=== PATIENT | female | born 1995 | race Caucasian/White ===

== ENCOUNTER 2016-08-24 23:39 | Outpatient (CLI) | payer BC ==
[~2016-08-24] VITALS: Ht 170.2 cm; Wt 78.6 kg
[2016-08-25] VITALS: BP 138/87; PULSE 98; TEMP 97.9
[2016-08-25 00:11] VITALS: BP 138/87; PULSE 98; TEMP 97.9
[2016-08-25] MEDS ORDERED: PRENATAL (00:17)
[2016-08-25] MEDS ORDERED: SYNTHROID0.137 MG (00:17)
[2016-08-25] MEDS ORDERED: CYTOMEL 2525 MCG/TAB PO (00:29)
[2016-08-25 01:00] VITALS: BP 122/80; PULSE 106
== END 2016-08-25 01:11 | disposition home or self-care (01) ==
LOC: LDRO 23:39
DX: O47.1 False labor at or after 37 completed weeks of gestation (principal); Z3A.37 37 weeks gestation of pregnancy

== ENCOUNTER 2016-09-09 03:11 | Inpatient (IN) | payer BC ==
[2016-09-09] VITALS (38 sets, daily range): BP systolic 97–148; BP diastolic 59–871; PULSE 68–129; TEMP 97.3–97.8
[~2016-09-09] VITALS: Ht 170.2 cm; Wt 79.1 kg
[~2016-09-09 03:11] MED LIST: CYTOMEL 2525 MCG/TAB PO; PRENATAL; SYNTHROID0.137 MG
[2016-09-09] MEDS ORDERED: ALBUTEROL0.83 MG/ML IH (03:47)
[2016-09-09 09:32] LABS: BASO # 0.1 (0.0-0.2); BASO % 0.4 % (0.0-2.0); EOS # 0.1 (0.0-0.7); EOS % 0.5 % (0-4.0); GRAN # 9.2 (1.4-6.5); GRAN % 71.1 % (42.2-75.2); LYMPH # 2.8 (1.2-3.4); LYMPH % 21.3 % (20.0-51.0); MEAN CELL VOLUME 77 fl (80.0-100.0); MEAN CORPUSCULAR HGB CONC 32 g/dl (33.0-37.0); MEAN PLATELET VOLUME 11.7 fl (7.4-10.4); MONO # 0.8 (0.1-0.6); MONO % 5.9 % (1.7-9.3); PLATELET COUNT 160 K/mm3 (130-400); RED BLOOD COUNT 4.67 M/mm3 (4.10-5.30); REDCELL DISTRIBUTION WIDTH-CV 14.8 % (11.5-14.5)
[2016-09-09 09:35] LABS: HEMATOCRIT 36.1 % (37.0-47.0); HEMOGLOBIN 11.4 g/dl (12.5-16.0); MEAN CORPUSCULAR HEMOGLOBIN 24 pg (27.0-31.0)
[2016-09-10 00:05] VITALS: BP 113/76; PULSE 103; TEMP 97.5
[2016-09-10 04:05] VITALS: BP 99/65; PULSE 80; TEMP 97.8
[2016-09-10 08:00] VITALS: BP 126/87; PULSE 93; TEMP 98
[2016-09-10 17:00] VITALS: BP 118/80; PULSE 88; TEMP 97.8
[2016-09-10 21:42] VITALS: BP 126/78; PULSE 90; TEMP 98.6
[2016-09-11 08:00] VITALS: BP 102/71; PULSE 79; TEMP 98.1
[2016-09-11] MEDS ORDERED: PHENERGAN W/CO120 M1 PO (09:07)
== END 2016-09-11 11:15 | disposition home or self-care (01) | DRG 775 ==
LOC: LDRO 03:11 → LDR 08:41 → OB 19:30 → LDR 19:30 → OB 19:30
PROVIDERS: Obstetrics & Gynecology
PROC: 10E0XZZ Delivery of Products of Conception, External Approach (ICD-10-PCS; principal; 2016-09-09)
PROC: 0KQM0ZZ Repair Perineum Muscle, Open Approach (ICD-10-PCS; 2016-09-09)
PROC: 0HQ9XZZ Repair Perineum Skin, External Approach (ICD-10-PCS; 2016-09-09)
DX: O99.284 Endocrine, nutritional and metabolic diseases complicating childbirth (principal); E03.9 Hypothyroidism, unspecified; O99.89 Other specified diseases and conditions complicating pregnancy, childbirth and the puerperium; M06.9 Rheumatoid arthritis, unspecified; O70.1 Second degree perineal laceration during delivery; O70.0 First degree perineal laceration during delivery; O69.81X0 Labor and delivery complicated by cord around neck, without compression, not applicable or unspecified; Z3A.39 39 weeks gestation of pregnancy; Z37.0 Single live birth
CPT/HCPCS: J2405; J2590; J7120

== ENCOUNTER 2018-03-23 06:20 | Inpatient (IN) | payer BC ==
[2018-03-23] VITALS (39 sets, daily range): BP systolic 97–132; BP diastolic 55–94; PULSE 67–111; TEMP 97.7–98.8
[~2018-03-23] VITALS: Ht 170.2 cm; Wt 84.1 kg
[~2018-03-23 06:20] MED LIST changes: +ALBUTEROL0.83 MG/ML IH; +PHENERGAN W/CO120 M1 PO; +PRILOTC; +SYNTHROID0.175 MG PO; +ZYRTEC5 MG PO
[2018-03-23] MEDS ORDERED: ZYRTEC 10MG10 MG PO (07:55)
[2018-03-23 08:40] LABS: BASO % 0.3 % (0.0-2.0); EOS # 0.1 (0.0-0.7); EOS % 0.8 % (0-4.0); GRAN # 6.4 (1.4-6.5); GRAN % 63.2 % (42.2-75.2); HEMOGLOBIN 10.3 g/dl (12.5-16.0); LYMPH % 29.2 % (20.0-51.0); MEAN CORPUSCULAR HEMOGLOBIN 24 pg (27.0-31.0); MEAN CORPUSCULAR HGB CONC 31 g/dl (33.0-37.0); MEAN PLATELET VOLUME 11.7 fl (7.4-10.4); MONO # 0.6 (0.1-0.6); MONO % 5.8 % (1.7-9.3); PLATELET COUNT 172 K/mm3 (130-400); RED BLOOD COUNT 4.38 M/mm3 (4.10-5.30); REDCELL DISTRIBUTION WIDTH-CV 14.5 % (11.5-14.5)
[2018-03-23 08:55] LABS: HEMATOCRIT 32.8 % (37.0-47.0)
[2018-03-23 08:56] LABS: MEAN CELL VOLUME 75 fl (80.0-100.0)
[2018-03-24 00:15] VITALS: BP 118/66; PULSE 84; TEMP 97.6
[2018-03-24 04:05] VITALS: BP 94/55; PULSE 72; TEMP 98.2
[2018-03-24 08:00] VITALS: BP 100/61; PULSE 80; TEMP 98.3
[2018-03-24] MEDS ORDERED: IBU600 MG PO (08:26)
[2018-03-24 12:30] VITALS: BP 104/63; PULSE 67; TEMP 98.1
[2018-03-24 16:00] VITALS: BP 112/79; PULSE 79; TEMP 97
== END 2018-03-24 16:50 | disposition home or self-care (01) | DRG 775 ==
LOC: LDR 06:20 → OB 17:00
PROVIDERS: Obstetrics & Gynecology
PROC: 10E0XZZ Delivery of Products of Conception, External Approach (ICD-10-PCS; principal; 2018-03-23)
PROC: 3E033VJ Introduction of Other Hormone into Peripheral Vein, Percutaneous Approach (ICD-10-PCS; 2018-03-23)
PROC: 10907ZC Drainage of Amniotic Fluid, Therapeutic from Products of Conception, Via Natural or Artificial Opening (ICD-10-PCS; 2018-03-23)
DX: O70.1 Second degree perineal laceration during delivery (principal); Z3A.39 39 weeks gestation of pregnancy; Z37.0 Single live birth; O99.284 Endocrine, nutritional and metabolic diseases complicating childbirth; E03.9 Hypothyroidism, unspecified; M06.9 Rheumatoid arthritis, unspecified
CPT/HCPCS: J2405; J2590; J2795; J7120

== ENCOUNTER 2021-08-19 07:12 | Inpatient (IN) | payer BC ==
[~2021-08-19] VITALS: Ht 170.2 cm; Wt 80.5 kg
[2021-08-19] VITALS (25 sets, daily range): BP systolic 97–135; BP diastolic 50–89; PULSE 60–96; TEMP 97.8–98.2
[~2021-08-19 07:12] MED LIST changes: +IBU600 MG PO; +ZYRTEC 10MG10 MG PO
--- NOTE | 2021-08-19 07:20 | NUR ---
PT AMBULATORY TO UNIT C/O VAGINAL BLEEDING WITH LOW LYING PLACENTA. BLEEDING STARTED AROUND 0400 "LEAKING OUT OF HER UNDERWEAR ONTO HER BED". UPON ARRIVAL PT HAS SMALL AMOUNT OF BLEEDING IN PAD WITH A MIX OF BROWN BLOOD AND NEW RED BLOOD, PEA SIZED CLOT IN TOILET. NO FREE FLOW NOTED. REPORTS CONTRACTIONS Q5 MINUTES FOR "WEEKS". REPORTS POSITIVE MOVEMENT. PLACED ON EFM/TOCO. CATEGORY 1 STRIP NOTED. VITAL SIGNS STABLE. SEE PHYS. NOTIFICATION.
--- NOTE | 2021-08-19 08:30 | NUR ---
AT BEDSIDE. SVE FINGERTIP AT THIS TIME PER . NO FURTHER BLEEDING NOTED. NO BLOOD ON GLOVE WITH SVE. CATEGORY 1 STRIP ON EFM. CONTRACTIONS Q2-3 MIN. DECISION MADE FOR PRIMARY CSECTION AT 12:00 TODAY UNLESS PT BEGINS TO BLEED HEAVILY AGAIN. STABLE AT THIS TIME. ALL CONSENTS SIGNED.
[2021-08-19 09:02] LABS: BASO % 0.4 % (0.0-2.0); EOS # 0.1 K/mm3 (0.0-0.7); EOS % 0.8 % (0.0-4.0); GRAN # 6.4 K/mm3 (1.4-6.5); GRAN % 71.4 % (42.2-75.2); HEMOGLOBIN 10.7 g/dl (12.5-16.0); LYMPH # 1.8 K/mm3 (1.2-3.4); LYMPH % 19.6 % (20.0-51.0); MEAN CELL VOLUME 81 fl (80.0-100.0); MEAN CORPUSCULAR HEMOGLOBIN 27 pg (27-31); MEAN CORPUSCULAR HGB CONC 33 g/dl (33.0-37.0); MEAN PLATELET VOLUME 11.6 fl (7.4-10.4); MONO # 0.6 K/mm3 (0.1-0.6); MONO % 7.2 % (1.7-9.3); PLATELET COUNT 116 K/mm3 (130-400); REDCELL DISTRIBUTION WIDTH-CV 13.2 % (11.5-14.5)
[2021-08-19 09:03] LABS: HEMATOCRIT 32.5 % (37.0-47.0)
--- NOTE | 2021-08-19 13:33 | NUR ---
1333: PT TO PACU IN STABLE CONDITION VIA BED AT THIS TIME. VITAL SIGNS STABLE. SMALL LOCHIA WITH NO CLOTS NOTED. FUNDUS FIRM AT UMBILICUS. PT FULLY ALERT AND TALKATIVE. DENIES NAUSEA. WILL CONTINUE PACU RECOVERY ROBYN PROTOCOL. 1403: PT TO ROOM VIA BED AT THIS TIME IN STABLE CONDITION. FUNDUS REMAINS FIRM AND UMBILICUS SCANT LOCHIA WITH NO CLOTS NOTED. VITAL SIGNS STABLE. PT CONTINUES TO BE FULLY ALERT, DENIES NEEDS OR PAINS. ORIENTED TO ROOM, MENU AND PLAN OF CARE. CALL LIGHT WITHIN REACH UPON EXITING. WILL CONTINUE WITH PP RECOVERY PER PROTOCOL. 1630: PT TOLERATING PO DIET WELL. BEGINNING TO "CRAMP". PO PERCOCET ADMINISTERED. FUNDUS FIRM AND 1FB BELOW UMBILICUS. LOCHIA SCANT WITH NO CLOTS NOTED. NETTLES DRAINING CLEAR YELLOW URINE. SCD'S TO BLE. PT DENIES QUESTIONS OR NEEDS AT THIS TIME.
[2021-08-20 01:00] VITALS: BP 113/70; PULSE 65; TEMP 98
[2021-08-20 05:10] VITALS: BP 101/61; PULSE 63; TEMP 97.9
[2021-08-20 07:10] LABS: HEMATOCRIT 30.3 % (37.0-47.0)
[2021-08-20 08:00] VITALS: BP 109/78; PULSE 70; TEMP 97.3
--- NOTE | 2021-08-20 08:54 | NUR ---
Initial visit; Parents thanked Investment Advisor for ofering congratulations and God's blessings for the oftheir son. Investment Advisor thanked family for choosing [facility].
[2021-08-20 12:30] VITALS: BP 103/61; BP 107/58; PULSE 66; PULSE 74; TEMP 98.2
[2021-08-20 17:00] VITALS: BP 102/58; BP 110/78; PULSE 69; PULSE 83
[2021-08-20 19:00] VITALS: BP 114/79; PULSE 86; TEMP 97.8
[2021-08-21 08:45] VITALS: BP 106/75; PULSE 66; TEMP 97.7
[2021-08-21] MEDS ORDERED: IBU600 MG PO (09:25)
[2021-08-21] MEDS ORDERED: PERCOCET 325 MG1 TA2 PO (09:25)
--- NOTE | 2021-08-21 11:40 | NUR ---
Discharge instructions and follow up care reviewed with pt and at the bedside. Both verbalized an understanding, agreed with the plan and states no questions or concerns at this time.
== END 2021-08-21 12:45 | disposition home or self-care (01) | DRG 788 ==
LOC: LDRO 07:12 → LDR 07:20 → LDRO 10:17 → LDR 10:19 → OB 10:19
PROVIDERS: Obstetrics & Gynecology; ADMIT Obstetrics & Gynecology
PROC: 10D00Z1 Extraction of Products of Conception, Low, Open Approach (ICD-10-PCS; principal; 2021-08-19)
DX: O44.53 Low lying placenta with hemorrhage, third trimester (principal); O99.284 Endocrine, nutritional and metabolic diseases complicating childbirth; E03.9 Hypothyroidism, unspecified; O99.344 Other mental disorders complicating childbirth; F41.9 Anxiety disorder, unspecified; O99.62 Diseases of the digestive system complicating childbirth; K21.9 Gastro-esophageal reflux disease without esophagitis; O75.89 Other specified complications of labor and delivery; M08.00 Unspecified juvenile rheumatoid arthritis of unspecified site; G43.909 Migraine, unspecified, not intractable, without status migrainosus; Z3A.38 38 weeks gestation of pregnancy; Z37.0 Single live birth
CPT/HCPCS: J1100; J1580; J1885; J2405; J2590; J2765; J3010; J7120